=== PATIENT | male | born 1990 | race African-American/Black ===

== ENCOUNTER 2017-08-14 03:15 | Emergency (ER) | payer OTHER ==
[~2017-08-14] VITALS: Ht 167.6 cm; Wt 141.1 kg
== END 2017-08-14 06:04 | disposition home or self-care (01) ==
LOC: ER 03:15
DX: S00.03XA Contusion of scalp, initial encounter (principal); M25.531 Pain in right wrist; M25.522 Pain in left elbow; Y08.89XA Assault by other specified means, initial encounter; Y93.89 Activity, other specified; Y92.89 Other specified places as the place of occurrence of the external cause; Y99.8 Other external cause status

== ENCOUNTER 2019-05-31 08:34 | Emergency (ER) | payer OTHER ==
[~2019-05-31] VITALS: Ht 167.6 cm; Wt 154.2 kg
[2019-05-31 09:03] LABS: HEMATOCRIT 48.9 % (42.0-52.0); HEMOGLOBIN 16.4 gm/dL (14.0-18.0); MCH 29.1 pg (26.0-34.0); MCHC 33.6 g/dL (28.0-37.0); MCV 86.7 fL (80.0-100.0); PLATELET COUNT 183 thou/uL (150-400); RBC 5.63 mil/uL (4.50-6.00); RDW 15.8 % (10.5-14.5)
[2019-05-31 09:09] LABS: ANION GAP 16 mmol/L (7-16); BUN 12 mg/dL (7-18); CALCIUM 9.9 mg/dL (8.5-10.1); CHLORIDE 101 mmol/L (98-107); CO2 22 mmol/L (21-32); CREATININE 1.2 mg/dL (0.7-1.3); GLUCOSE 85 mg/dL (74-106); POTASSIUM 3.6 mmol/L (3.5-5.1); SODIUM 139 mmol/L (136-145)
[2019-05-31 09:18] LABS: ALBUMIN 3.8 g/dL (3.4-5.0); SGOT 67 U/L (15-37); SGPT 37 U/L (30-65); TOTAL BILIRUBIN 0.1 mg/dL (<0.1-1.0); TOTAL PROTEIN 9.3 g/dL (6.4-8.2); TROPONIN-I <0.06 ng/mL (<0.06)
[2019-05-31] MEDS ORDERED: TAMIFLU75 MG PO (09:56)
[2019-05-31 10:02] LABS: ABSOLUTE NEUTROPHILS 2.4 thou/uL (1.4-8.2); ANISOCYTOSIS SLIGHT
[2019-05-31 10:19] VITALS: BP 153/97
== END 2019-05-31 10:15 | disposition home or self-care (01) ==
LOC: ER 08:34
PROVIDERS: Emergency Medicine
DX: J10.1 Influenza due to other identified influenza virus with other respiratory manifestations (principal); E66.9 Obesity, unspecified; Z87.891 Personal history of nicotine dependence; Z86.711 Personal history of pulmonary embolism; Z68.43 Body mass index [BMI] 50.0-59.9, adult

== ENCOUNTER 2019-06-13 10:40 | Emergency (ER) | payer OTHER ==
[~2019-06-13] VITALS: Ht 167.6 cm; Wt 145.2 kg
[2019-06-13 10:40] VITALS: BP 130/81
[~2019-06-13 10:40] MED LIST: TAMIFLU75 MG PO
[2019-06-13] MEDS ORDERED: MUCINEX D ER 11 EACH PO (11:26)
[2019-06-13] MEDS ORDERED: AZITHROMYCIN 2250 MG PO (11:26)
[2019-06-13] MEDS ORDERED: IBUPROFEN 600600 M1 PO (11:26)
== END 2019-06-13 11:48 | disposition home or self-care (01) ==
LOC: ER 10:40
DX: J03.90 Acute tonsillitis, unspecified (principal); Z86.711 Personal history of pulmonary embolism; Z87.891 Personal history of nicotine dependence

== ENCOUNTER 2020-11-23 00:35 | Emergency (ER) | payer OTHER ==
[~2020-11-23] VITALS: Ht 167.6 cm; Wt 146.5 kg
[~2020-11-23 00:35] MED LIST changes: +AZITHROMYCIN 2250 MG PO; +IBUPROFEN 600600 M1 PO; +MUCINEX D ER 11 EACH PO
[2020-11-23] MEDS ORDERED: [UNRECOGNIZED DRUG - REMARK] (00:41)
[2020-11-23] MEDS ORDERED: VITAMIN D31 ML PO (00:41)
[2020-11-23 01:32] LABS: ABSOLUTE NEUTROPHILS 4.3 thou/uL (1.4-8.2); BASOPHILS 0.5 % (0.0-2.0); EOSINOPHILS 2.3 % (0.0-3.0); HEMATOCRIT 44.5 % (42.0-52.0); HEMOGLOBIN 14.8 gm/dL (14.0-18.0); LYMPHOCYTES 37.5 % (24.0-44.0); MCHC 33.2 g/dL (28.0-37.0); MCV 87.2 fL (80.0-100.0); MONOCYTES 8.1 % (1.0-8.0); PLATELET COUNT 172 thou/uL (150-400); POLYS 51.6 % (36.0-66.0); RDW 16.6 % (10.5-14.5); WBC 8.4 thou/uL (4.0-11.0)
[2020-11-23 01:46] LABS: ALBUMIN 3.6 g/dL (3.4-5.0); ANION GAP 15 mmol/L (7-16); CALCIUM 8.9 mg/dL (8.5-10.1); CHLORIDE 100 mmol/L (98-107); CO2 25 mmol/L (21-32); CREATININE 0.9 mg/dL (0.7-1.3); DIRECT BILIRUBIN < 0.1 mg/dL (<0.1-0.2); GLUCOSE 78 mg/dL (74-106); POTASSIUM 3.6 mmol/L (3.5-5.1); SGOT 28 U/L (15-37); SGPT 33 U/L (30-65); SODIUM 140 mmol/L (136-145); TOTAL BILIRUBIN 0.3 mg/dL (0.2-1.0); TOTAL PROTEIN 8.7 g/dL (6.4-8.2); TROPONIN-I <0.06 ng/mL (<0.06)
[2020-11-23 01:48] LABS: BUN 8 mg/dL (7-18)
[2020-11-23] MEDS ORDERED: ZPAK PO (03:57)
[2020-11-23] MEDS ORDERED: MOBIC15 MG PO (03:57)
[2020-11-23 04:15] VITALS: BP 157/91
--- NOTE | 2020-11-23 11:39 | EKG ---
[place] [address] [facility] [place] [address] ELECTROCARDIOGRAM REPORT Name: RAZ PARK Room #: REG SALLY Spivey#: [id number] Admission: 11/23/20 Attend Phys: Discharge: Date of : 86 Report #: [id number] [facility] ED Test Date: 2020-11-23 Test Time: 00:40:13 Pat Name: RAZ PARK Department: Room: Gender: Banquet Prep Cook: JOHN : 1990 Requested By: Roseline Mejia Order Number: [id number] MD: Devaughn Millan Measurements Intervals Orange Rate: 84 P: 34 MI: 156 QRS: 4 QRSD: 98 T: 27 QT: 356 QTc: 421 Interpretive Statements Sinus rhythm ST elev, probable normal early repol pattern Baseline wander in lead(s) I,II,aVR No previous ECG available for comparison Electronically Signed On 11-23-2020 11:39:36 CDT by Devaughn Millan [email or web address] <ELECTRONICALLY SIGNED> By: Devaughn Millan MD 11/23/20 1139 0040 0040 MD PORSHA Beebe
== END 2020-11-23 04:30 | disposition home or self-care (01) ==
LOC: ER 00:35
PROVIDERS: Emergency Medicine
DX: J18.9 Pneumonia, unspecified organism (principal); Z20.822 Contact with and (suspected) exposure to COVID-19; R06.00 Dyspnea, unspecified; I10 Essential (primary) hypertension; F17.210 Nicotine dependence, cigarettes, uncomplicated; Z79.899 Other long term (current) drug therapy; Z86.711 Personal history of pulmonary embolism